=== PATIENT | male | born 1955 | race Caucasian/White ===

== ENCOUNTER 2022-02-12 13:56 | Emergency (ER) | payer MEDICARE, BC, SELFPAY ==
[2022-02-12 14:10] VITALS: BP 130/77; PULSE 92; RESP 18; TEMP 37.1; O2SAT 100
--- NOTE | 2022-02-12 14:54 | ED.URI ---
HPI - URI/Sore Throat General Chief Complaint: Upper Respiratory Infection Stated Complaint: sore throat cough congestion Time Seen by Provider: 02/12/22 14:55 Source: patient, RN notes reviewed and old records reviewed Mode of arrival: ambulatory Limitations: no limitations History of Present Illness HPI Narrative: 66-year-old male [facility] with complaints of sore throat with cough and congestion, headache frontal and some facial pressure yellowish nasal drainage for the past 5 days with patient reporting that symptoms are getting worse.He reports that he has had Covid vaccinations and a flu shot, did home COVID test 2 days ago which was negative. Patient states that his throat is very sore and bueno rates his pain 8/10. He states that he has been taking Mucinex, cough drops, tesslon Perles, and also has been using throat spray for his pain. He states that he has not had a fever or any chills or sweats,states some body aches, denies any shortness of breath or any wheezing. MD elicited complaint: cough, sore throat and nasal congestion Related Data Home Medications Medication Instructions Recorded Confirmed buspirone 5 mg PO BID 02/12/22 02/12/22 cholecalciferol (vitamin D3) 50 mcg PO DAILY 02/12/22 02/12/22 famotidine 40 mg PO DAILY 02/12/22 02/12/22 modafinil 200 mg PO DAILY 02/12/22 02/12/22 nortriptyline 50 mg PO TID 02/12/22 02/12/22 zolpidem 5 mg PO DAILY 02/12/22 02/12/22 Allergies Allergy/AdvReac Type Severity Reaction Status Date / Time No Known Allergies Allergy Verified 02/12/22 14:41 Review of Systems Review of Systems: CONSTITUTIONAL: Denies fever, chills, or sweats. EYES: Denies visual changes, redness, or discharge. ENT: Positive for rhinorrhea, congestion, sore throat, no otalgia. CARDIOVASCULAR: Denies chest pain, palpitations, or edema. RESPIRATORY: Positive for cough no dyspnea. GASTROINTESTINAL: Denies abdominal pain, nausea, vomiting, or diarrhea. GENITOURINARY: Denies dysuria or hematuria. SKIN: Denies rash or itching. MUSCULOSKELETAL: Denies back pain, joint pain, positive for some body aches NEUROLOGIC: positive for frontal headache, facial sinus pressure,no numbness, or weakness. PSYCHIATRIC: Positive for anxiety or depression. All systems reviewed & are unremarkable except as noted in HPI and below PMFSH Past Medical History Medical History Anxiety COVID-19 Daytime sleepiness GERD (gastroesophageal reflux disease) Glaucoma Kidney disease Seasonal allergies Sinusitis Surgical History Surgical History H/O hernia repair X2 Social History Social History (Updated 02/13/22 @ 15:06 by Taisha Kelly NP) Smoking status: Never smoker Alcohol intake: current Alcohol use details: rare Substance use: never Living arrangements: with family Gender identity (if verbalized by the patient): Male Comments At time of signature, agree with nursing past medical, surgical, social and family history. There is no relevant family history pertinent to the presenting complaint Exam Narrative: GENERAL: Well-appearing, well-nourished, and in no acute distress. HEAD: Normocephalic, atraumatic. EYES: PERRLA and EOMI. ENT: Nares with membranes red, yellow sinus rhinorrhea no epistaxis. Mucous membranes moist.TM's normal with good light reflex, Throat red with no lesions or exudates or tonsil swelling, post nasal discharge noted to back of throat. NECK: Supple.no lymphadenopathy CHEST: Clear to auscultation. No respiratory distress.cough no dyspnea or tachypnea, SAO2 100% on room air HEART: Regular rate and rhythm. No murmur heard. Normal peripheral pulses. ABDOMEN: Soft, nontender, nondistended, normal active bowel sounds. EXTREMITIES: Normal range of motion. No edema. SKIN: Warm, dry, no rash. NEURO: No focal deficits. Alert and oriented x3.headache and facial sinus
== END 2022-02-12 15:15 | disposition home or self-care (01) ==
PROVIDERS: Emergency Provider Registered Nurse; PCP Internal Medicine
DX: J06.9 Acute upper respiratory infection, unspecified (principal); J02.9 Acute pharyngitis, unspecified; R05.9 Cough, unspecified; K21.9 Gastro-esophageal reflux disease without esophagitis; H40.9 Unspecified glaucoma; F41.9 Anxiety disorder, unspecified; Z86.16 Personal history of COVID-19
CPT/HCPCS: 87081; 87880; 99213; G0463